=== PATIENT | female | born 1985 | race Hispanic/Latino ===

== ENCOUNTER 2018-08-10 18:41 | Emergency (ER) | payer SELFPAY ==
[2018-08-10 19:55] LABS: Urine Blood 2+ (NEG); Urine Glucose NEGATIVE (NEG); Urine Protein NEGATIVE (NEG); Urine pH 6.5 (5.0-7.0)
--- NOTE | 2018-08-10 20:22 | RAD REPORT ---
EXAM DESCRIPTION: US - TRANSVAG OB - 08/10/2018 8:02 pm CLINICAL HISTORY: with abdominal pain COMPARISON: None FINDINGS: The uterus measures 10 x 5 x 8 centimeters. A gestational sac is present within the endom etrium. Within this is a pole with a crown-rump length 1.7 centimeters. Cardiac activity was no t detected. The ovaries are normal in size echotexture. Right and left adnexa unremarkable. No significant free fluid IMPRESSION: demise. The estimated gestational age 8 weeks 2 days
--- NOTE | 2018-08-10 21:06 | ER ---
Nurse's Notes [facility] Name: Jackie Suarez Age: 33 yrs Sex: Female : 1985 Arrival Date: 08/10/2018 Time: 18:45 Bed 16 Private MD: None, None Diagnosis: demise Presentation: 08/10 19:03 Presenting complaint: Patient states: I was seen today at the [facility] clinic and I am 10 sg wks . Today they performed ultrasound, and told me there was no heart beat and no baby. They wanted me to drink this medication that would help me pass the fetus from my body. I was not happy with the treatment there, and when I spoke with his office recommened that I be seen in the Emergency department for evaluation. Transition of care: patient was not received from another setting of care. Onset of symptoms was August 10, 2018. Risk Assessment: Do you want to hurt yourself or someone else? Patient reports no desire to harm self or others. Initial Sepsis Screen: Does the patient meet any 2 criteria? No. Patient's initial sepsis screen is negative. Does the patient have a suspected source of infection? No. Patient's initial sepsis screen is negative. Care prior to arrival: None. 19:03 Method Of Arrival: Ambulatory 19:03 Acuity: ANÍBAL 3 Triage Assessment: 19:24 General: Appears in no apparent distress. Behavior is calm, cooperative. 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 - Social history:: Smoking status: Patient/guardian denies using tobacco. - Ebola Screening: : Patient negative for fever greater than or equal to 101.5 degrees Fahrenheit, and additional compatible Ebola Virus Disease symptoms Patient denies exposure to infectious person Patient denies travel to an Ebola-affected area in the 21 days before illness onset No symptoms or risks identified at this time. Screenin:23 Abuse screen: Denies threats or abuse. Denies injuries from another. Nutritional ak1 screening: No deficits noted. Tuberculosis screening: No symptoms or risk factors identified. Fall Risk None identified. Assessment: 19:34 General: Appears in no apparent distress. Behavior is calm, cooperative. Pain: Denies ak1 pain. Neuro: No deficits noted. Cardiovascular: No deficits noted. Respiratory: No deficits noted. GI: No signs and/or symptoms were reported involving the gastrointestinal system. : Reports US yesterday in [place] with no FHT or viable reported to pt. family stated pt felt as if the [email or web address] tech did not "look around for a heart beat" pt denies pain of any kind, pt denies vaginal discharge, pt denies vaginal bleeding. EENT: No signs and/or symptoms were reported regarding the EENT system. Derm: No signs and/or symptoms reported regarding the dermatologic system. Musculoskeletal: No signs and/or symptoms reported regarding the musculoskeletal system. Vital Signs: 19:04 BP 147 / 92; Pulse 107; Resp 18; Temp 98.1; Pulse Ox 100% on R/A; Weight 82.55 kg; Pain sg 0/10; 20:16 BP 144 / 96; Pulse 85; Resp 18; Temp 98.1; Pulse Ox 100% on R/A; ak1 ED Course: 18:45 Patient arrived in ED. mr 18:46 None, None is Private Physician. mr 19:04 Triage completed. sg 19:04 Arm band placed on. sg 19:21 Edison Zarate MD is Attending Physician. tw4 19:23 Patient has correct armband on for positive identification. Placed in gown. Bed in low ak1 position. Call light in reach. Side rails up X 1. Pulse ox on. NIBP on. 19:34 Daysi Agarwal, RN is Primary Nurse. ak1 19:58 Ultrasound completed. Patient tolerated well. Notified ED Physician [place]. sg3 20:02 TRANSVAG OB In Process Unspecified. EDMS 21:04 Akanksha Sahu MD is Referral Physician. tw4 21:04 Mickey Moon MD is Referral Physician. tw4 21:20 No provider procedures requiring assistance completed. Patient did not have IV access ak1 during this emergency room visit. Administered Medications: No medications were administered Outcome: 21:05 Discharge ordered by . tw4 21:20 Discharged to home ambulatory, with family. ak1 21:20 Condition: stable 21:20 Discharge instructions given to patient, family, Instructed on discharge instructions, follow up and referral plans. Demonstrated understanding of instructions, follow-up care. 21:21 Patient left the ED. ak1 Signatures: Dispatcher [employer] EDMS Eedr Schmitz RN RN sg Alda Braxton Amber, RN RN ak1 Sonia Terry 3 Edison Zarate MD MD tw4
--- NOTE | 2018-08-10 21:07 | EDPHYS ---
Physician Documentation [facility] Name: Jackie Suarez Age: 33 yrs Sex: Female : 1985 Arrival Date: 08/10/2018 Time: 18:45 Bed 16 Private MD: None, None ED Physician Edison Zarate HPI: 08/11 04:43 This 33 yrs old Female presents to ER via Ambulatory with complaints of 10 wks tw4 , no heartbeat. 04:43 The patient presents with a desire for an ultrasound to document her . tw4 Associated signs and symptoms: The patient has no apparent associated signs or symptoms. 04:49 The patient has not experienced similar symptoms in the past. The patient has been tw4 recently seen by a physician: at a clinic. 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 - Social history:: Smoking status: Patient/guardian denies using tobacco. - Ebola Screening: : Patient negative for fever greater than or equal to 101.5 degrees Fahrenheit, and additional compatible Ebola Virus Disease symptoms Patient denies exposure to infectious person Patient denies travel to an Ebola-affected area in the 21 days before illness onset No symptoms or risks identified at this time. ROS: 08/11 04:49 Negative for injury or acute deformity, urinary symptoms, urinary frequency, tw4 hematuria, flank pain, difficulty urinating, bladder incontinence, foul smelling urine, vaginal bleeding, vaginal itching, menstrual abnormality. Constitutional: Negative for fever, chills, and weight loss, Eyes: Negative for injury, pain, redness, and discharge, Cardiovascular: Negative for chest pain, palpitations, and edema, Respiratory: Negative for shortness of breath, cough, wheezing, and pleuritic chest pain, Abdomen/GI: Negative for abdominal pain, nausea, vomiting, diarrhea, and constipation, Back: Negative for injury and pain, MS/Extremity: Negative for injury and deformity, Skin: Negative for injury, rash, and discoloration, Neuro: Negative for headache, weakness, numbness, tingling, and seizure. Exam: 04:49 Constitutional: This is a well developed, well nourished patient who is awake, alert, tw4 and in no acute distress. Head/Face: Normocephalic, atraumatic. Chest/axilla: Normal chest wall appearance and motion. Nontender with no deformity. No lesions are appreciated. Cardiovascular: Regular rate and rhythm with a normal S1 and S2. No gallops, murmurs, or rubs. Normal PMI, no JVD. No pulse deficits. Respiratory: Lungs have equal breath sounds bilaterally, clear to auscultation and percussion. No rales, rhonchi or wheezes noted. No increased work of breathing, no retractions or nasal flaring. Abdomen/GI: Soft, non-tender, with normal bowel sounds. No distension or tympany. No guarding or rebound. No evidence of tenderness throughout. Back: No spinal tenderness. No costovertebral tenderness. Full range of motion. MS/ Extremity: Pulses equal, no cyanosis. Neurovascular intact. Full, normal range of motion. Neuro: Awake and alert, GCS 15, oriented to person, place, time, and situation. Cranial nerves II-XII grossly intact. Motor strength 5/5 in all extremities. Sensory grossly intact. Cerebellar exam normal. Normal gait. Vital Signs: 08/10 19:04 BP 147 / 92; Pulse 107; Resp 18; Temp 98.1; Pulse Ox 100% on R/A; Weight 82.55 kg; Pain sg 0/10; 20:16 BP 144 / 96; Pulse 85; Resp 18; Temp 98.1; Pulse Ox 100% on R/A; ak1 MDM: 19:21 Patient medically screened. tw4 08/11 04:49 Differential diagnosis: abruptio placentae, appendicitis, menorrhea, Data reviewed: tw4 vital signs, nurses notes. Data interpreted: Pulse oximetry:. Counseling: I had a detailed discussion with the patient and/or guardian regarding: the historical points, exam findings, and any diagnostic results supporting the discharge/admit diagnosis, lab results. ED course: Pt's ultrasound reveal demise and a gestational age of 8 weeks. 08/10 19:50 Order name: Urine Dipstick--Ancillary (enter results) 6 08/10 19:50 Order name: Urine --Ancillary (enter results) 6 08/10 19:59 Order name: TRANSVAG OB EDMS Administered Medications: No medications were administered Disposition: 08/10/18 21:05 Discharged to Home. Impression: demise. - Condition is Stable. - Discharge Instructions: Miscarriage. - Medication Reconciliation Form, Thank You Letter, Antibiotic Education, Prescription Opioid Use form. - Follow up: Akanksha Sahu MD; When: Upon discharge from the Emergency Department; Reason: If symptoms return, Recheck today's complaints, Continuance of care. Follow up: Mickey Moon MD; When: Upon discharge from the Emergency Department; Reason: If symptoms return, Recheck today's complaints, Continuance of care. - Problem is new. - Symptoms have improved. Signatures: Dispatcher [employer] EDKS Eder Schmitz RN DEMETRIO Daysi Agarwal RN RN ak1 Edison Zarate MD MD tw4 Corrections: (The following items were deleted from the chart) 08/10 19:59 19:25 OB Limited+US.RAD.BRZ ordered. EDKS EDKS 21:21 21:05 08/10/2018 21:05 Discharged to Home. Impression: demise. Condition is ak1 Stable. Forms are Medication Reconciliation Form, Thank You Letter, Antibiotic Education, Prescription Opioid Use. Follow up: Akanksha Sahu; When: Upon discharge from the Emergency Department; Reason: If symptoms return, Recheck today's complaints, Continuance of care. Follow up: Mickey Moon; When: Upon discharge from the Emergency Department; Reason: If symptoms return, Recheck today's complaints, Continuance of care. Problem is new. Symptoms have improved. tw4
== END 2018-08-10 21:21 | disposition home or self-care (01) ==
LOC: ER 18:41
DX: O02.1 Missed abortion (principal); Z3A.08 8 weeks gestation of pregnancy
CPT/HCPCS: 76813; 81003; 81025; 99283